=== PATIENT | male | born 1970 | race African-American/Black ===

== ENCOUNTER 2025-02-14 14:14 | Emergency (ER) | payer SELFPAY ==
[2025-02-14 14:15] VITALS: BP 103/64; PULSE 57; RESP 16; TEMP 36.6; O2SAT 98; BMI 25.4
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
[2025-02-14] MEDS: Ketorolac 30 MG/ML Syringe IM (14:57)
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
== END 2025-02-14 16:01 | disposition home or self-care (01) ==
PROVIDERS: Emergency Provider Emergency Medicine; Visit Provider Emergency Medicine
DX: M54.50 Low back pain, unspecified (principal); M54.2 Cervicalgia; V43.53XD Car driver injured in collision with pick-up truck in traffic accident, subsequent encounter
CPT/HCPCS: 72040; 72110; 96372; 99282